=== PATIENT | male | born 2000 | race Two or more races ===

== ENCOUNTER 2018-09-05 22:09 | Emergency (ER) | payer OTHER ==
[~2018-09-05] VITALS: Ht 167.6 cm; Wt 102.1 kg
[2018-09-05 22:36] VITALS: BP 139/86
== END 2018-09-06 04:20 | disposition left against medical advice (07) ==
LOC: ER 22:14
DX: M25.512 Pain in left shoulder (principal); Z53.21 Procedure and treatment not carried out due to patient leaving prior to being seen by health care provider; V29.9XXA Motorcycle rider (driver) (passenger) injured in unspecified traffic accident, initial encounter; Y93.89 Activity, other specified; Y92.89 Other specified places as the place of occurrence of the external cause; Y99.8 Other external cause status
CPT/HCPCS: 73030